=== PATIENT | male | born 1995 | race Caucasian/White ===

== ENCOUNTER → 2019-10-23 09:46 | Outpatient (BNVA) | payer OTHER, SELFPAY | PROVIDERS: Family Provider Family Medicine; Visit Provider Psychiatry & Neurology Psychiatry | DX: Z13.228 Encounter for screening for other metabolic disorders (principal) | CPT/HCPCS: 80061; 83036 ==

== ENCOUNTER 2021-11-17 08:19 | Emergency (ER) | payer OTHER, SELFPAY ==
[2019-10-29 14:24] VITALS: BP 137/77; BMI 19.9
[2021-11-17 08:23] VITALS: BMI 18.7
--- NOTE | 2021-11-17 08:32 | W.ED.WOUNDLC ---
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 No difficulty with occlusion of his teeth no other injury. He is unsure of his last tetanus shot. Onset (ago): minute(s) Location: face Place: work Patient tetanus UTD: No Context: accidental Associated symptoms: Denies chills, fever(s), foreign body sensation, inability to move or nausea Review of Systems Const: Denies: fever(s) or chills ENMT: Denies: throat pain, ear or mastoid pain, nasal discharge or nasal congestion Card: Denies: chest pain, edema, dyspnea on exertion or orthopnea Resp: Denies: dyspnea, productive cough or non-productive cough GI: Denies: nausea PFSH ED PFSH: Medical History (Updated 11/18/21 @ 13:12 by Jeff Broussard DO) No pertinent past medical history Surgical History (Updated 11/18/21 @ 13:12 by Jeff Broussard DO) No pertinent past surgical history Social History Smoking and tobacco status: current every day smoker Current gender identity: Male Physical Exam Const: COMMON NORMALS: no acute distress GENERAL APPEARANCE: cooperative and comfortable ORIENTATION/CONSCIOUSNESS: Yes awake, Yes oriented to person, Yes oriented to place and Yes oriented to time HENMT: COMMON NORMALS: normocephalic, hearing grossly normal bilaterally, external ears normal, EAC's normal, TM's normal bilaterally, Normal nasal mucous membranes and turbinates present, moist oral mucous membranes and oropharynx normal HEAD & SCALP: normocephalic NOSE: Normal nasal mucous membranes and turbinates present EXTERNAL EAR: Yes external ears normal EXTERNAL AUDITORY CANAL: EAC's normal TYMPANIC MEMBRANE: TM's normal bilaterally OTHER: 3 center laceration centered on the chin. No active bleeding is slightly gaping. Eye: COMMON NORMALS: Equal, round and reactive pupils present, EOMs intact bilaterally, conjunctivae normal and no scleral icterus CONJUNCTIVA: Yes conjunctivae normal PUPIL: Yes Equal, round and reactive pupils present Neck/C-Spine: COMMON NORMALS: full ROM, no lymphadenopathy, supple and no JVD Resp: COMMON NORMALS: normal respiratory effort, No retractions, No use of accessory muscles and clear to auscultation bilaterally AUSCULTATION: clear to auscultation bilaterally Cardio: COMMON NORMALS: no JVD, regular rate, regular rhythm and No murmurs present (Cardio) RATE: regular rate RHYTHM: regular rhythm GI: COMMON NORMALS: Soft to palpation and No hepatosplenomegaly present AUSCULTATION: Yes normoactive bowel sounds PALPATION: Yes Soft to palpation, No Tenderness to palpation present (GI), No Guarding due to palpation present (GI) and Yes No hepatosplenomegaly present Extremity: COMMON NORMALS: normal to inspection, capillary refill normal, no clubbing, cyanosis or edema, no calf tenderness and no pedal edema Neuro: SENSORIUM/ORIENTATION: Yes oriented to person, Yes oriented to place and Yes oriented to time Skin: COMMON NORMALS: no rashes or lesions noted GENERAL SKIN EXAM: no rashes or lesions noted Procedures Laceration Laceration 1: Site: face Size (cm): 3 Description: linear Depth: simple, single layer Local Anesthetic: lidocaine 1% and with epi Amount of anesthesia used (mL): 4 Pre-repair: irrigated extensively and deep structures intact Skin layer closed with: other (Prolene) Size (cm): 4-0 Number of sutures: 5 Technique: simple, interrupted Course Vital Signs: Vital signs: Vital Signs Pulse Rate 73 11/17/21 09:48 Respiratory Rate 14 11/17/21 09:48 Blood Pressure 110/75 11/17/21 09:48 Pulse Oximetry 98 11/17/21 09:48 MDM - Wound/Laceration Medical Decision Making Wound closed primarily wound care instructions given tetanus updated follow-up with primary care doctor remove stitches in 5 to 7 days return if there is signs of infection. Discharge Plan Discharge Patient Disposition: Home Clinical Impression: Laceration Condition: Stable Prescriptions: No Action No Known Home Medications Discharge Orders: Discharge ED (Routine); Ordered 11/17/21 Ordered By: Jeff Broussard Discharge Diet: Usual diet Discharge Activity: Resume usual activity Patient Instructions: Laceration (ED), Opioid Safety, Pain Management Activity Restrictions/Additional Instructions: Sutures to be removed with your primary care doctor in 5 to 7 days. Coding Level of Care Code ED Water Resources Technical Officer for Brady Thompson
[2021-11-17] MEDS: tetanus-dipt-pertussis 0.5 mL SDV IM (09:34)
[2021-11-17 09:48] VITALS: BP 110/75; PULSE 73; RESP 14; O2SAT 98
== END 2021-11-17 09:51 | disposition home or self-care (01) ==
PROVIDERS: Emergency Provider Family Medicine
DX: S01.81XA Laceration without foreign body of other part of head, initial encounter (principal); W22.8XXA Striking against or struck by other objects, initial encounter; Z23 Encounter for immunization
CPT/HCPCS: 12013; 90471; 90715; 99282

== ENCOUNTER → 2021-11-24 10:17 | Outpatient (BNVA) | payer MEDICAID, SELFPAY ==
[2019-10-29 14:24] VITALS: BP 137/77; BMI 19.9
== END ==
PROVIDERS: Visit Provider Registered Nurse Neonatal Intensive Care
DX: J11.1 Influenza due to unidentified influenza virus with other respiratory manifestations (principal); Z48.02 Encounter for removal of sutures
CPT/HCPCS: 87400; 87426

== ENCOUNTER 2022-06-15 09:56 | Outpatient (CLI) | payer OTHER, SELFPAY ==
[2019-10-29 14:24] VITALS: BP 137/77; BMI 19.9
--- NOTE | 2022-06-15 10:27 | XR_ITS ---
WS: [id number] LUMBAR SPINE TECHNIQUE: 3 views of the lumbar spine CLINICAL INFORMATION: LOW BACK PAIN/SCOLIOSIS COMPARISON: None. FINDINGS: Five [id number] lumbar vertebral bodies. Mild disc space narrowing L2-L3. Disc space heights are otherwise well preserved. No compression fractures. No visualized pars defects. Trace retrolisthesis L2 on L3, L3 on L4 and L4 on L5. Visualized sacroiliac joints are normal. Normal visualized soft tissues. Partially visualized bowel g as pattern is normal. XR/XR lumbar spine 2-3V* [id number] IMPRESSION: 1. 2. Trace retrolisthesis L2 on L3, L3 on L4 and L4 on L5. 3. Mild disc space narrowing L2-L3. 4. Otherwise normal lumbar spine.
== END 2022-06-15 09:57 | disposition home or self-care (01) ==
LOC: RAD CLINIC 10:11 → RAD 10:15
PROVIDERS: Visit Provider Dermatology
DX: M43.16 Spondylolisthesis, lumbar region (principal); M54.50 Low back pain, unspecified; M41.9 Scoliosis, unspecified
CPT/HCPCS: 72100

== ENCOUNTER 2022-08-23 00:26 | Emergency (ER) | payer MEDICAID, SELFPAY ==
[2019-10-29 14:24] VITALS: BP 137/77; BMI 19.9
[2022-08-23] VITALS (7 sets, daily range): BP systolic 99–136; BP diastolic 53–84; PULSE 52–80; RESP 14–20; TEMP 36.8; O2SAT 97–100
--- NOTE | 2022-08-23 00:51 | ED_ITS ---
HPI - Abdominal Pain General: Chief Complaint: Abdominal Pain Stated Complaint: abdomen pain, right side tingling Time Seen by Provider: 08/23/22 00:51 History of Present Illness: Mr. Park is a 26-year-old gentleman without significant past medical history presenting the emergency department for acute onset right upper quadrant abdominal pain. He notes onset of symptoms approximately 30 minutes prior to arrival. He had episodes of dry heaving while eating a chip and had sudden onset of pain. Mostly right upper quadrant with radiation in the epigastric and right lower quadrant. Also had an episode of tingling though this is resolved. Intensity is moderate. Course has persisted. Denies frequent similar episodes in the past. No other specific changes in health, exacerbating, or alleviating factors identified. Onset (ago): minute(s) Location: RUQ Severity: moderate Associated Symptoms: Reports nausea and vomiting; Denies hematochezia and hematemesis Review of Systems General: Reports: 10 or more systems reviewed and unremarkable except in HPI and below GI: Reports: nausea and vomiting; Denies: hematemesis or hematochezia [facility] ED PFSH: Medical History No pertinent past medical history Surgical History No pertinent past surgical history Social History Smoking and tobacco status: current every day smoker Current gender identity: Male Physical Exam Const: COMMON NORMALS: alert GENERAL APPEARANCE: cooperative and well developed HENMT: COMMON NORMALS: normocephalic and atraumatic HEAD & SCALP: normocephalic and atraumatic Eye: COMMON NORMALS: conjunctivae normal CONJUNCTIVA: Yes conjunctivae normal SCLERA: sclerae normal Neck/C-Spine: COMMON NORMALS: supple GENERAL: Yes trachea midline Resp: COMMON NORMALS: clear to auscultation bilaterally EFFORT & INSPECT ION: Yes able to speak in complete sentences AUSCULTATION: clear to auscultation bilaterally Cardio: COMMON NORMALS: regular rate and regular rhythm RATE: regular rate RHYTHM: regular rhythm GI: COMMON NORMALS: Soft to palpation PALPATION: Yes Soft to palpation, Yes Tenderness to palpation present (GI), Yes Guarding due to palpation present (GI) and No Rigid due to palpation Extremity: GENERAL: Yes normal exam except as noted and No edema Neuro: COMMON NORMALS: moves all extremities SENSORIUM/ORIENTATION: Yes alert and No Orientation impaired Psych: COMMON NORMALS: mental status grossly normal and Normal thought process present THOUGHT PROCESS: Normal thought process present Course Vital Signs: Vital signs: Vital Signs Temperature 98.3 F 08/23/22 00:51 Pulse Rate 56 L 08/23/22 04:46 Respiratory Rate 14 08/23/22 04:46 Blood Pressure 99/53 08/23/22 04:46 Pulse Oximetry 100 08/23/22 04:46 Oxygen Delivery Me thod Room Air 08/23/22 04:00 MDM - Abdominal Pain Medical Decision Making 26-year-old gentleman presenting with abdominal pain. Abdominal tenderness and guarding though no evidence of acute surgical abdomen. Uncomfortable appearing due to symptoms. Nontoxic. Labs with no leukocytosis, normal hemoglobin and platelet count. Essentially unremarkable metabolic and hepatic function panel. No UTI. Given degree of tenderness despite laboratory findings imaging is required. CT is negative for acute pathology. Patient treated with analgesia, antiemetic, fluids and clinically improved. He is able to tolerate p.o. intake. The results of ED evaluation were discussed with the patient including prescriptions and/or symptomatic cares (if applicable) including appropriate and responsible use, followup plan, and return precautions. The patient verbalized understanding and felt safe for discharge. Medical Records I reviewed the patient's medical records. Lab Data I reviewed the patient's lab results. 08/23/22 01:05 08/23/22 01:05 Labs/Radiology: Radiology Impressions Abdomen/Pelvis CT 08/23/22 02:18 IMPRESSION: 1. Normal appendix. 2. No cause for acute pain is identified. Laboratory Results WBC 8.5 10^3/uL (4.0-10.0) 08/23/22 01:05 RBC 4.96 10^6/uL (4.1-5.3) 08/23/22 01:05 Hgb 14.5 g/dL (11.7-16.6) 08/23/22 01:05 Hct 41.4 % (42.0-52.0) L 08/23/22 01:05 MCV 83.5 fl (80-94) 08/23/22 01:05 MCH 29.2 pg (28.0-34.0) 08/23/22 01:05 MCHC 35.0 g/dL (30.0-36.0) 08/23/22 01:05 RDW 12.1 % (12.1-15.1) 08/23/22 01:05 Plt Count 364 10^3/cmm (130-400) 08/23/22 01:05 MPV 10.6 fL (7.4-10.4) H 08/23/22 01:05 Neut % (Auto) 59.7 % 08/23/22 01:05 Lymph % (Auto) 26.8 % 08/23/22 01:05 [place] % (Auto) 7.5 % 08/23/22 01:05 Eos % (Auto) 4.6 % 08/23/22 01:05 Baso % (Auto) 1.2 % 08/23/22 01:05 Neut # (Auto) 5.08 10^3/uL (1.8-7.7) 08/23/22 01:05 Lymph # (Auto) 2.3 10^3/uL (0.8-4.8) 08/23/22 01:05 [place] # (Auto) 0.6 10^3/uL (0.2-0.9) 08/23/22 01:05 Eos # (Auto) 0.4 10^3/uL (0.0-0.8) 08/23/22 01:05 Baso # (Auto) 0.1 10^3/uL (0.0-0.1) 08/23/22 01:05 Nucleated RBC % (auto) 0 % 08/23/22 01:05 Nucleated RBCs # 0.0 /100WBC 08/23/22 01:05 Sodium 139 mmol/L (136-145) 08/23/22 01:05 Potassium 3.7 mmol/L (3.5-5.1) 08/23/22 01:05 Chloride 103 mmol/L (98-107) 08/23/22 01:05 Carbon Dioxide 23 mmol/L (22-29) 08/23/22 01:05 Anion Gap 16.7 (5-19) 08/23/22 01:05 BUN 5 mg/dL (6-20) L 08/23/22 01:05 Creatinine 0.6 mg/dL (0.7-1.2) L 08/23/22 01:05 GFR Calculation 161.6 mL/min (90-130) H 08/23/22 01:05 Glucose 108 mg/dL (65-115) 08/23/22 01:05 Calculated Osmolality 286 mOsm/kg (285-295) 08/23/22 01:05 Lactic Acid 2.2 mmol/L (0.5-2.2) 08/23/22 01:05 Lactic Acid (Sepsis) 1.3 mmol/L (0.5-2.2) 08/23/22 03:10 Calcium 9.3 mg/dL (8.5-10.5) 08/23/22 01:05 Total Bilirubin 0.5 mg/dL (0.15-1.2) 08/23/22 01:05 AST 21 U/L (0-40) 08/23/22 01:05 ALT 23 U/L (0-41) 08/23/22 01:05 Alkaline Phosphatase 74 U/L (40-130) 08/23/22 01:05 Total Protein 7.1 g/dL (6.6-8.7) 08/23/22 01:05 Albumin 4.6 g/dL (3.5-5.2) 08/23/22 01:05 Globulin 2.5 g/dL (1.3-4.6) 08/23/22 01:05 Lipase 15 U/L (13-60) 08/23/22 01:05 Urine Color Light yellow (Yellow) 08/23/22 03:03 Urine Appearance Clear (CLEAR) 08/23/22 03:03 Urine pH 8 (5-7) H 08/23/22 03:03 Ur Specific [place] 1.010 (1.005-1.030) 08/23/22 03:03 Urine Protein Neg (Negative) 08/23/22 03:03 Urine Glucose (UA) Norm (Normal) 08/23/22 03:03 Urine Ketones Negative (Negative) 08/23/22 03:03 Urine Blood Neg (Negative) 08/23/22 03:03 Urine Nitrate Negative (Negative) 08/23/22 03:03 Urine Bilirubin Neg (Negative) 08/23/22 03:03 Prot Sulfosalicylic Acd Negative (Negative) 08/23/22 03:03 Urine Urobilinogen Neg mg/dL (Negative) 08/23/22 03:03 Ur Leukocyte Esterase Negative (Negative) 08/23/22 03:03 Discharge Plan Discharge Patient Disposition: Home Clinical Impression: Abdominal pain Condition: Stable Prescriptions: New ondansetron 4 mg tablet,disintegrating 4 mg PO Q8H PRN (Reason: nausea and vomiting) Qty: 15 0RF Protonix 40 mg tablet,delayed release (DR/EC) 40 mg PO BID 14 Days Qty: 28 0RF No Action amoxicillin-pot clavulanate 875-125 mg tablet 1 tab PO BID 7 Days Qty: 14 0RF Discharge Orders: Discharge ED (Routine); Ordered 08/23/22 Ordered By: Mehrdad Palma Discharge Diet: Advance as tolerated and Clear Liquid Discharge Activity: Increase activity as tolerated Patient Instructions: Diet for Stomach Ulcers and Gastritis (ED), Abdominal Pain (ED), Opioid Safety Activity Restrictions/Additional Instructions: Thank you for visiting the emergency department. You were seen and evaluated for abdominal pain with nausea and vomiting. The exact cause your symptoms is unclear however it does not appear to need hospitalization at this time. I recommend clear liquid diet and slowly advancing as tolerated. I will prescribe proton pump inhibitor and and a nausea medication. You may use cbnj-wut-[id number] medications such as acetaminophen and ibuprofen for pain however please do not exceed the daily recommended dosage as listed on the packaging and please keep in mind that many namebrand medications contain the same active ingredients. Please avoid these medications if previously instructed to do so by another physician due to other underlying medical condition. Please follow-up with a primary care provider. Return for anything that you are concerned about and feel needs emergency department evaluation. Coding Level of Care Code ED Pega Developer for Brady Thompson
[2022-08-23 01:14] LABS: Basophils # 0.1 10^3/uL (0.0-0.1); Basophils % 1.2 %; Eosinophils # 0.4 10^3/uL (0.0-0.8); Eosinophils % 4.6 %; Hematocrit 41.4 % (42.0-52.0); Hemoglobin 14.5 g/dL (11.7-16.6); Lymphocytes # 2.3 10^3/uL (0.8-4.8); Lymphocytes % 26.8 %; Mean Corpuscular Hemoglobin 29.2 pg (28.0-34.0); Mean Corpuscular Volume 83.5 fl (80-94); Mean Platelet Volume 10.6 fL (7.4-10.4); Monocytes # 0.6 10^3/uL (0.2-0.9); Monocytes % 7.5 %; Neutrophils # 5.08 10^3/uL (1.8-7.7); Neutrophils % 59.7 %; Nucleated Red Blood Cells % 0 %; Platelet Count 364 10^3/cmm (130-400); Red Blood Count 4.96 10^6/uL (4.1-5.3); Red Cell Distribution Width 12.1 % (12.1-15.1); White Blood Count 8.5 10^3/uL (4.0-10.0)
[2022-08-23] MEDS: sodium chloride 0.9% 1,000 ML 999 ML IV (01:18)
[2022-08-23] MEDS: morphine 4 mg/mL SDV 1 mL IVP (01:19)
[2022-08-23] MEDS: ondansetron 2 mg/ML SDV 2 mL 4 MG IVP (01:19)
[2022-08-23 01:35] LABS: Lactic Sepsis W/Reflex 2.2 mmol/L (0.5-2.2)
[2022-08-23 01:36] LABS: Alanine Aminotransferase 23 U/L (0-41); Albumin Level 4.6 g/dL (3.5-5.2); Alkaline Phosphatase 74 U/L (40-130); Anion Gap 16.7 (5-19); Aspartate Amino Transferase 21 U/L (0-40); Blood Urea Nitrogen 5 mg/dL (6-20); Calcium 9.3 mg/dL (8.5-10.5); Carbon Dioxide 23 mmol/L (22-29); Chloride 103 mmol/L (98-107); Globulin 2.5 g/dL (1.3-4.6); Glomerular Filtration Rate 161.6 mL/min (90-130); Glucose 108 mg/dL (65-115); Lipase 15 U/L (13-60); Osmolality Calculated 286 mOsm/kg (285-295); Potassium 3.7 mmol/L (3.5-5.1); Sodium 139 mmol/L (136-145); Total Bilirubin 0.5 mg/dL (0.15-1.2); Total Protein 7.1 g/dL (6.6-8.7)
[2022-08-23] MEDS: lidocaine 2% viscous 15 ML, aluminum-mag hydrox-simethicon 30 ML, sucralfate oral liq 1 GM PO (01:57)
--- NOTE | 2022-08-23 02:18 | CTR_ITS ---
PROCEDURE INFORMATION: Exam: CT Abdomen And Pelvis With Contrast Exam date and time: 08/23/2022 2:25 AM Age: 26 years old Clinical indication: Abdominal pain; Localized; Right lower quadrant (rlq); Additional info: Sudden ruq/rlq pain TECHNIQUE: Imaging protocol: Computed tomography of the abdomen and pelvis with contrast. Radiation optimization: All CT scans at this facility use at least one of these dose optimization techniques: automated exposure control; mA and/or kV adjustment per patient size (includes targeted exams where dose is matched to clinical indication); or iterative reconstruction. Contrast material: OMNI 350; Contrast volume: 100 ml; Contrast route: INTRAVENOUS (IV); REPORTING DATA: Count of CT and Cardiac NM exams in prior 12 months: This patient has received 0 known CTs and 0 known cardiac nuclear medicine studies in the 12 months prior to the current study. COMPARISON: CR XR lumbar spine 2-3V* [id number] 06/15/2022 10:59 AM RADIATION DOSE METRICS: Total DLP (mGy-cm): 356.62 FINDINGS: Lungs: The lung bases are clear. No effusion Liver: Normal. No mass. Gallbladder and bile ducts: No wall thickening, pericholecystic fluid or stones. Pancreas: Normal. No ductal dilation. Spleen: Normal. No splenomegaly. Adrenal glands: Normal. No mass. Kidneys and ureters: Normal. No hydronephrosis. Stomach and bowel: Unremarkable. No obstruction. No mucosal thickening. Appendix: The appendix is normal in size with no associated fat infiltration. Intraperitoneal space: Unremarkable. No free air. No significant fluid collection. Vasculature: Unremarkable. No abdominal aortic aneurysm. Lymph nodes: Unremarkable. No enlarged lymph nodes. Urinary bladder: Unremarkable as visualized. Reproductive: Unremarkable as visualized. Bones/joints: Unremarkable. No acute fracture. Soft tissues: Unremarkable. CT/CT abdomen pelvis w con* [id number] IMPRESSION: 1. Normal appendix. 2. No cause for acute pain is identified.
[2022-08-23] MEDS: iohexol 350 mg/mL 500 mL Btl (per mL) IV (02:28)
[2022-08-23 02:59] LABS: Reflex Lactate Order REFLEX LACTIC ORDERD
[2022-08-23 03:07] LABS: Add Urine Microscopic? NO; Charge for UA Resulting for Rev
[2022-08-23 03:09] LABS: Bilirubin Urine Neg (Negative); Blood Urine Neg (Negative); Glucose Urine UA Norm (Normal); Ketones Urine Negative (Negative); Leukocyte Esterase Urine Negative (Negative); Nitrate Urine Negative (Negative); Protein Urine Neg (Negative); Sulfosalicylic Acid Urine Negative (Negative); Urine Appearance Clear (CLEAR); Urine Color Light yellow (Yellow); Urobilinogen Urine Neg (Negative); pH Urine 8 (5-7)
[2022-08-23 03:30] LABS: Lactic Acid level (Lactate) 1.3 mmol/L (0.5-2.2)
== END 2022-08-23 04:47 | disposition home or self-care (01) ==
PROVIDERS: Emergency Provider Emergency Medicine
DX: R10.11 Right upper quadrant pain (principal); F17.210 Nicotine dependence, cigarettes, uncomplicated
CPT/HCPCS: 74177; 80053; 81003; 83605; 83690; 85025; 96361; 96374; 96375; 99285; J2270; J2405; J7030; Q9967

== ENCOUNTER → 2023-03-12 12:04 | Outpatient (BNVA) | payer OTHER, SELFPAY ==
[2019-10-29 14:24] VITALS: BP 137/77; BMI 19.9
== END ==
PROVIDERS: Visit Provider Psychiatry & Neurology Neurology
DX: F41.1 Generalized anxiety disorder (principal)
CPT/HCPCS: 80061; 83036

== ENCOUNTER → 2024-04-01 09:03 | Outpatient (BNVA) | payer OTHER, SELFPAY ==
[2024-04-01 13:27] VITALS: BP 123/77; BMI 17.4
== END ==
PROVIDERS: Visit Provider Psychiatry & Neurology Psychiatry
DX: F33.2 Major depressive disorder, recurrent severe without psychotic features (principal); F41.1 Generalized anxiety disorder
CPT/HCPCS: 80061; 83036